=== PATIENT | male | born 1995 | race Two or more races ===

== ENCOUNTER 2017-09-19 09:50 | Emergency (ER) | payer SELFPAY ==
[~2017-09-19] VITALS: Ht 185.4 cm; Wt 97.1 kg
[2017-09-19 09:52] VITALS: BP 148/54
[2017-09-19] MEDS ORDERED: KETOROLAC TROMETH 60MG/2ML VIAL IM ONE ×2 (11:24→11:30)
[2017-09-19] MEDS ORDERED: METHOCARBAMOL 500 MG TAB ONE (11:27)
[2017-09-19] MEDS ORDERED: METHOCARBAMOL 500 MG TAB PO ONE (11:30)
== END 2017-09-19 12:40 | disposition home or self-care (01) ==
LOC: ER 09:50
DX: M54.5 Low back pain (principal)
CPT/HCPCS: 72100; 96372; 99284; J1885

== ENCOUNTER 2020-03-23 13:15 | Emergency (ER) | payer MEDICAID, OTHER ==
[~2020-03-23] VITALS: Ht 185.4 cm; Wt 90.7 kg
[2020-03-23 13:55] VITALS: BP 138/78
[2020-03-23] MEDS ORDERED: HYDROcodone-ACET 5/325MG TAB PO ONE (15:15)
== END 2020-03-23 15:37 | disposition home or self-care (01) ==
LOC: ER 13:15
DX: S62.306A Unspecified fracture of fifth metacarpal bone, right hand, initial encounter for closed fracture (principal); X58.XXXA Exposure to other specified factors, initial encounter; Y93.89 Activity, other specified; Y92.89 Other specified places as the place of occurrence of the external cause; Y99.8 Other external cause status
CPT/HCPCS: 29125; 73130